=== PATIENT | female | born 1950 | race Caucasian/White ===

== ENCOUNTER 2017-06-09 11:45 | Outpatient (CLI) | payer BC, MEDICARE ==
[2017-06-09 12:33] LABS: Hematocrit 39.8 % (36.0-47.0); Mean Platelet Volume 7.4 fL (7.4-10.4); White Blood Cell (WBC) Count 7.5 thou/uL (4.8-10.8)
[2017-06-09 13:05] LABS: Anion Gap 11 mmol/L (10-20); BUN (Urea Nitrogen) 12 mg/dL (9.8-20.1); Calc. Creatinine Clearance 0 mL/min (70-130); Calcium 9.1 mg/dL (7.8-10.44); Carbon Dioxide 27 mmol/L (23-31); Chloride 106 mmol/L (98-107); Estimated GFR-MDRD 85
== END 2017-06-09 11:46 | disposition home or self-care (01) ==
LOC: LABBT 11:45
PROVIDERS: ATTEND Podiatrist Foot & Ankle Surgery
DX: Z01.818 Encounter for other preprocedural examination (principal); M21.612 Bunion of left foot; M20.42 Other hammer toe(s) (acquired), left foot
CPT/HCPCS: 80048; 85027

== ENCOUNTER 2017-06-13 08:45 | Day surgery (SDC) | payer BC, MEDICARE ==
[2017-06-09 12:19] VITALS: BMI 25.7
[2017-06-13] MEDS ORDERED: CEFAZOLIN/Water 2 GM/20 ML SYRINGE ONE (09:59)
[2017-06-13] MEDS ORDERED: Bupivacaine PF 0.5% 30 ML VIAL ONE (11:50)
[2017-06-13] MEDS ORDERED: Neomycin-Polymyxin 1 ML AMP ONE (11:51)
[2017-06-13] MEDS ORDERED: Fentanyl 100 MCG/2 ML VIAL ONE ×4 (12:23→16:04)
[2017-06-13] MEDS ORDERED: Ondansetron HCl/PF 4 MG/2 ML Vial ONE (12:33)
[2017-06-13] MEDS ORDERED: Lidocaine 1% PF 5 ML VIAL ONE (12:33)
[2017-06-13] MEDS ORDERED: Dexamethasone 20 MG/5 ML VIAL ONE (12:33)
[2017-06-13] MEDS ORDERED: Propofol 200 MG/20 ML VIAL ONE (12:33)
--- NOTE | 2017-06-13 16:51 | OP ---
DATE OF SURGERY: 06/13/2017 SURGEON: Abi Holt DPM. PREOPERATIVE DIAGNOSES: 1. Bunion, left foot. 2. Dislocated second metatarsophalangeal joint, left. 3. Plantar plate tear, left. 4. Hammertoes 2 through 4 left foot and pain, left foot. PROCEDURES: Artis bunionectomy, left foot, Yessica osteotomy second metatarsal left foot, plantar plat e repair, left foot arthrodesis, second and proximal metatarsophalangeal joint, left foot, flexor ten don release to digits 3 and 4, left foot. ANESTHESIA: General with local foot block. HEMOSTASIS: Pneumatic ankle tourniquet at 250 mmHg. ESTIMATED BLOOD LOSS: Less than 5 mL. MATERIALS: 2-0 Vicryl, 4-0 Monocryl, 4-0 Prolene #2 FiberWire and 2 Synthes headless compression scr ews and one Arthrex snap-off screw. INJECTABLES: 20 mL of 0.5% Marcaine plain. PROCEDURE IN DETAIL: The patient was brought into the operating room and placed on the operating tab le in supine position. Well-padded pneumatic ankle tourniquet was placed about the patient's left an kle following administration of IV anesthesia. Local foot block was given utilizing 20 mL of 0.5% Ma rcaine plain. The foot was then scrubbed, prepped and draped in usual aseptic manner. [place] ge was used to exsanguinate the patient's left foot and the pneumatic ankle tourniquet was then infla ruby to 250 mmHg, which provided adequate hemostasis throughout the entire procedure. Next, attention was then directed to the dorsal aspect of the patient's left foot where a 5 cm linear longitudinal i ncision was made over the dorsal aspect of the first metatarsophalangeal joint. Upon exposure of the capsule, a T-type capsulotomy was performed exposing the head of the first metatarsal as well as the base of the proximal phalanx. Utilizing a sagittal bone saw, the medial prominence was carefully re sected and passed from the operative field. Next, a Chevron-type osteotomy was performed shifting th e head into a more corrected lateral position, was held in place with temporary fixation of a guidewi re. Next, utilizing techniques and principles of Sovi 3.0 x 26 mm screw was placed across the osteotomy site from dorsal proximal to plantar distal. Through the first interspace, the adduct or tendon was then carefully released from its attachment at the base of the proximal phalanx. The w ound was irrigated with copious amounts of sterile normal saline and GI mixture and the skin was then closed utilizing 2-0 Vicryl for capsular structures, 4-0 Monocryl for subcuticular and 4-0 Prolene f or skin closure. Next, attention was then directed to the dorsal aspect of the patient's left second digit and metatarsophalangeal joint, a 5 cm linear longitudinal incision was made over the dorsal as pect of the patient's second metatarsophalangeal joint extending to the proximal interphalangeal join t. Upon adequate exposure of the capsule, a linear type capsulotomy was performed exposing the head of the second metatarsal. Next, an oblique cut was then made at the neck of the second metatarsal sh ifting into more corrected lateral position and at this point, it was noted that the plantar plate wa s then torn medially, the stretched and torn plantar plate was then carefully resected and passed fro m the operative field. Next, utilizing techniques and principles of Arthrex medical, a 2.0 FiberWir e was used to reattach the plantar plate to the base of the proximal phalanx of the second digit. A step off screw was placed across the second metatarsal osteotomy site holding it in place that correc t shortened position. Next, attention was then directed to the second digit where a transverse tenot isabel was then performed at the proximal interphalangeal joint. Upon adequate exposure of the head of the proximal phalanx, it was carefully resected and passed from the operative field as well as the ba se of the intermediate phalanx. Next, utilizing techniques and principles, the Sovi a 2.4 x 36 mm screw was placed across the osteotomy site from distal to proximal. Fluoroscopy was used th roughout the procedure and all fixation was noted to be correct at this time. The wound was irrigate d with copious amounts of sterile normal saline and mixture. The capsular structures were reappro ximated and coapted utilizing 2-0 Vicryl and the skin was closed utilizing 4-0 Monocryl and 4-0 Prole ne and a simple interrupted suture technique through a stab incision in the plantar aspect of the sec ond and third and fourth digits under the proximal interphalangeal joint, a stab incision was then pe rformed to and the tendon was released. The wounds were irrigated with copious amounts of sterile no rmal saline and mixture and the skin was closed utilizing 4-0 Prolene in a simple interrupted sutu re technique. Light compressive dressing was placed about the patient's left foot and the pneumatic ankle tourniquet was released with prompt hyperemic response noted to all digits, left foot. DISCHARGE SUMMARY: Following a period of postoperative monitoring, the patient is to be discharged h ome. She is advised to call, if she has any problems prior to the first postoperative appointment, er vascular status was intact to all digits at this time.
[2017-06-13] MEDS ORDERED: HYDROcodone/Acetaminophen 5/325 mg Tablet ONE (17:20)
--- NOTE | 2017-06-13 18:42 | RAD ---
LEFT FOOT THREE VIEWS: History: 66-year-old female with history of post op bunionectomy. FINDINGS: Post op bunionectomy changes are noted with internal fixation screws stabilizing the first and second distal metatarsals as well as the second toe phalanges. No pre-operative imaging available for malika alexandre. IMPRESSION: Post-operative bunionectomy changes involving the distal first and second metatarsals and the second toe phalanges. POS: [facility]
== END 2017-06-13 18:30 | disposition home or self-care (01) ==
LOC: SDC 08:45
PROVIDERS: ATTEND Podiatrist Foot & Ankle Surgery
PROC: 0QSP04Z Reposition Left Metatarsal with Internal Fixation Device, Open Approach (ICD-10-PCS; principal; 2017-06-13)
PROC: 0SGN04Z Fusion of Left Metatarsal-Phalangeal Joint with Internal Fixation Device, Open Approach (ICD-10-PCS; principal; 2017-06-13)
DX: M21.612 Bunion of left foot (principal); M20.42 Other hammer toe(s) (acquired), left foot; S93.125A Dislocation of metatarsophalangeal joint of left lesser toe(s), initial encounter; S93.525A Sprain of metatarsophalangeal joint of left lesser toe(s), initial encounter; I42.1 Obstructive hypertrophic cardiomyopathy; I34.0 Nonrheumatic mitral (valve) insufficiency; I25.10 Atherosclerotic heart disease of native coronary artery without angina pectoris; F41.9 Anxiety disorder, unspecified; I10 Essential (primary) hypertension; E11.9 Type 2 diabetes mellitus without complications; G47.33 Obstructive sleep apnea (adult) (pediatric); M51.36 Other intervertebral disc degeneration, lumbar region; M41.80 Other forms of scoliosis, site unspecified; Z99.89 Dependence on other enabling machines and devices; Z79.899 Other long term (current) drug therapy; Z98.84 Bariatric surgery status; Z95.818 Presence of other cardiac implants and grafts; Z98.890 Other specified postprocedural states
CPT/HCPCS: 76001; 96374; C1713; G8978-GP-CJ; G8979-GP-CJ; G8980-GP-CJ; J1100; J2001; J2405; J2704; J3010; S0020

== ENCOUNTER 2017-07-14 13:16 | Outpatient (CLI) | payer BC, MEDICARE ==
[2017-07-14 14:32] LABS: Hematocrit 37.3 % (36.0-47.0); Mean Platelet Volume 7.2 fL (7.4-10.4); Red Blood Cell (RBC) Count 3.92 mill/uL (4.20-5.40); White Blood Cell (WBC) Count 7.5 thou/uL (4.8-10.8)
[2017-07-14 14:51] LABS: Anion Gap 11 mmol/L (10-20); BUN (Urea Nitrogen) 13 mg/dL (9.8-20.1); Calc. Creatinine Clearance 0 mL/min (70-130); Calcium 8.8 mg/dL (7.8-10.44); Carbon Dioxide 28 mmol/L (23-31); Chloride 108 mmol/L (98-107); Estimated GFR-MDRD 83
== END 2017-07-14 13:17 | disposition home or self-care (01) ==
LOC: LABBT 13:16
PROVIDERS: ATTEND Podiatrist Foot & Ankle Surgery
DX: Z01.812 Encounter for preprocedural laboratory examination (principal); M21.611 Bunion of right foot; M20.41 Other hammer toe(s) (acquired), right foot
CPT/HCPCS: 80048; 85027

== ENCOUNTER 2017-07-20 09:40 | Day surgery (SDC) | payer BC, MEDICARE ==
[2017-07-14 13:34] VITALS: BMI 25.8
[2017-07-20] MEDS ORDERED: CEFAZOLIN/Water 2 GM/20 ML SYRINGE ONE (10:26)
[2017-07-20] MEDS ORDERED: Bupivacaine PF 0.5% 30 ML VIAL ONE (11:06)
[2017-07-20] MEDS ORDERED: Bupivacaine/Epinephrine 0.25% 30 ML VIAL ONE (11:06)
[2017-07-20] MEDS ORDERED: Neomycin-Polymyxin 1 ML AMP ONE (11:19)
[2017-07-20] MEDS ORDERED: Fentanyl 250 MCG/5 ML VIAL ONE (11:29)
[2017-07-20] MEDS ORDERED: Fentanyl 100 MCG/2 ML VIAL ONE ×2 (14:14→14:46)
--- NOTE | 2017-07-20 14:47 | OP ---
DATE OF SURGERY 07/20/2017 SURGEON: Abi Holt DPM. PREOPERATIVE DIAGNOSES: 1. Bunion, right foot, metatarsalgia with dislocated second metatarsophalangeal joint, second digit, right foot. 2. Hammertoe digits 2-4 right foot, displaced hardware, left second digit. POSTOPERATIVE DIAGNOSES: 1. Bunion, right foot, metatarsalgia with dislocated second metatarsophalangeal joint, second digit, right foot. 2. Hammertoe digits 2-4 right foot and displaced hardware, left second digit. PROCEDURE: Artis bunionectomy, right foot, Chevron type osteotomy second metatarsal right foot, fle xor tendon release to digits 3 and 4 right foot, arthrodesis PIPJ second digit right foot, replacemen t of displaced hardware, second toe left foot. INJECTABLES: 30 mL of 0.5% Marcaine plain. PROCEDURE: The patient was brought into the operating room, and placed on the operating table in sup ine position, well-padded pneumatic ankle tourniquet was placed about the patient's right ankle. Fol lowing administration of IV anesthesia, local foot block was given utilizing 20 mL of 0.5% Marcaine p ahsan. The foot was then scrubbed, prepped and draped in usual aseptic manner. Esmarch bandage was u sed to exsanguinate the patient's right foot and the pneumatic ankle tourniquet was then inflated to 250 mmHg, which provided adequate hemostasis throughout the entire procedure. Attention was then dir ected to the first metatarsophalangeal joint where a 5 cm linear longitudinal incision was made over the dorsal aspect of the joint. Upon adequate exposure of the capsule T-type capsulotomy was perform ed exposing the head of the first metatarsal as well as the base of the proximal phalanx. The medial prominence was then carefully resected and passed from the operative field. Next, a Chevron type os teotomy was performed shifting the head into a more corrected lateral position was held in place with temporary fixation with a K-wire. Next, utilizing techniques and principals a Synthes 3.0 compressi on screw was placed across the osteotomy site from dorsal proximal to plantar distal. The adductor t endon was then carefully resected from its attachment at the base of proximal phalanx. The wound was irrigated with copious amounts of sterile normal saline and mixture and the capsular structures w ere reapproximated and coapted utilizing 2-0 Vicryl, and skin was closed utilizing 4-0 Vicryl for sub cuticular and 4-0 Prolene for skin closure. Next, attention was then directed to the second metatars al where a 3 cm linear longitudinal incision was made over the dorsal aspect of the second metatarsop halangeal joint. Upon adequate exposure of the second metatarsal a linear capsulotomy was performed exposing the head of the second metatarsal, a sagittal bone saw was used to make an oblique cut shift ing it to a more corrected shortened position, it was held in place with temporary fixation of K-wire . Fluoroscopy was used to assure proper alignment and shortening were noted to be correct and a 14 m m headless compression screw was placed across the osteotomy site. The wound was irrigated with copi ous amounts of sterile normal saline and mixture and the skin and subcuticular structures were beni sed utilizing 4-0 Vicryl and 4-0 Prolene. Attention was then directed to the dorsal aspect of the pr oximal interphalangeal joint where a transverse incision was made exposing the tendon and the second digit. A transverse tenotomy was then performed and the joint of the proximal interphalangeal joint was resected utilizing a sagittal bone saw. Next, utilizing techniques and principals a Synthes 2.4 headless compression screw was placed across the osteotomy site from the distal aspect of the second digit. The tendon was then carefully reapproximated and coapted utilizing 4-0 Vicryl, and skin was c losed utilizing 4-0 Prolene in a simple interrupted suture technique. Next, a stab incision was made at the plantar aspect of the third and fourth digit releasing the plantar flexor tendons of each dig it. The wounds were irrigated with copious amounts of sterile normal saline and mixture and the s kin was closed utilizing 4-0 Prolene in a simple interrupted suture technique. Light compressive sharona ssing was placed about the patient's right foot and the pneumatic ankle tourniquet was released with prompt hyperemic response noted to all digits of the right foot. Next, attention was then directed t o the dorsal aspect of the patient's left foot where an Esmarch bandage was used to exsanguinate the patient's left foot and the pneumatic ankle tourniquet was then inflated to 200 mmHg, which provided adequate hemostasis throughout the entire procedure. Utilizing fluoroscopy, the screws of the second digit was then identified and resected from its displaced position. Due to the lack of fusion at th e proximal interphalangeal joint a new larger 3.0 headless screw was placed in a corrected position. The wound was irrigated with copious amounts of sterile normal saline and mixture and the skin wa s closed utilizing 4-0 Prolene in simple interrupted suture technique. Light compressive dressing wa s placed about the patient's left foot and the pneumatic ankle tourniquet was released with prompt hy peremic response noted to all digits of the left foot. DISCHARGE SUMMARY: The patient tolerated the procedure and anesthesia and was transferred to the rec overy room with vital signs stable and vascular status intact to all digits of both feet. Following a period of postoperative monitoring, the patient is to be discharged home. Should she have any prob lems prior to the first postoperative appointment, she is advised to call and will be seen within [address] [place] of the procedure.
[2017-07-20] MEDS ORDERED: traMADol HCl 50 MG TAB ONE (15:51)
--- NOTE | 2017-07-20 16:06 | RAD ---
THREE VIEWS RIGHT FOOT: 07/20/17 HISTORY: Status post surgery. COMPARISON: None. FINDINGS: There is evidence of postsurgical change with surgery at the distal aspect of the first metatarsal. T here appears to be an associated fracture with a solitary internal fixation screw. There is a screw f using the interphalangeal joint space of the entire second digit. There is a screw at the distal aspe ct of the second metatarsal. Lisfranc alignment is maintained. There is associated soft tissue swelling and banding material. Incompletely assessed internal fixation hardware at the distal fibula is noted. There does appear to be some perihardware lucency. IMPRESSION: 1. Postsurgical changes as above. 2. Perihardware lucency involving the internal fixation plate at the distal fibula. POS: [facility]
--- NOTE | 2017-07-20 16:07 | RAD ---
LEFT FOOT THREE VIEWS: HISTORY: Foot surgery. Followup. COMPARISON: 06/13/2017 FINDINGS: Periosteal reaction and callus formation are forming around the osteotomy surgeries at the first and second metatarsal necks. No perihardware lucency is apparent. Internal fixation of the second toe i s apparent. A small amount of soft tissue gas remains. Soft tissue swelling is evident about the fo refoot. Osteophytosis and other degenerative changes are present throughout the foot. A large plantar enthes ophyte arises from the posterior aspect of the calcaneus. IMPRESSION: 1. Healing changes around the postoperative sites of the left foot. 2. Osteoarthritis. 3. Plantar heel spur. POS: [facility]
[2017-07-20] MEDS ORDERED: Dexamethasone 20 MG/5 ML VIAL ONE (16:45)
[2017-07-20] MEDS ORDERED: Lidocaine 1% PF 5 ML VIAL ONE (16:45)
[2017-07-20] MEDS ORDERED: Propofol 200 MG/20 ML VIAL ONE (16:45)
[2017-07-20] MEDS ORDERED: Ondansetron HCl/PF 4 MG/2 ML Vial ONE (16:45)
[2017-07-20] MEDS ORDERED: Ketorolac Tromethamine 30 MG/ML VIAL ONE (16:45)
== END 2017-07-20 16:35 | disposition home or self-care (01) ==
LOC: SDC 09:40
PROVIDERS: ATTEND Podiatrist Foot & Ankle Surgery
PROC: 0QSN0ZZ Reposition Right Metatarsal, Open Approach (ICD-10-PCS; principal; 2017-07-20)
PROC: 0QBN0ZZ Excision of Right Metatarsal, Open Approach (ICD-10-PCS; principal; 2017-07-20)
DX: M21.611 Bunion of right foot (principal); M20.41 Other hammer toe(s) (acquired), right foot; T84.293A Other mechanical complication of internal fixation device of bones of foot and toes, initial encounter; S93.124A Dislocation of metatarsophalangeal joint of right lesser toe(s), initial encounter
CPT/HCPCS: 76001; C1713; J1100; J1885; J2001; J2405; J2704; J3010; S0020

== ENCOUNTER 2020-12-30 13:55 | Outpatient (CLI) | payer BC, OTHER | END 2020-12-30 13:56 | disposition home or self-care (01) | LOC: BICMAMMO 13:55 | PROVIDERS: ATTEND Internal Medicine Hospice and Palliative Medicine | DX: Z12.31 Encounter for screening mammogram for malignant neoplasm of breast (principal) | CPT/HCPCS: 77063; 77067 ==

== ENCOUNTER 2022-01-29 12:47 | Outpatient (CLI) | payer BC, MEDICARE | END 2022-01-29 12:48 | disposition home or self-care (01) | LOC: BICMAMMO 12:47 | PROVIDERS: ATTEND Internal Medicine Endocrinology, Diabetes & Metabolism | DX: Z13.820 Encounter for screening for osteoporosis (principal); M85.89 Other specified disorders of bone density and structure, multiple sites | CPT/HCPCS: 77080 ==

== ENCOUNTER 2023-03-02 10:07 | Outpatient (CLI) | payer BC, MEDICARE | END 2023-03-02 10:08 | disposition home or self-care (01) | LOC: BICMAMMO 10:07 | PROVIDERS: ATTEND Internal Medicine Hospice and Palliative Medicine | DX: Z12.31 Encounter for screening mammogram for malignant neoplasm of breast (principal); M81.0 Age-related osteoporosis without current pathological fracture; M85.851 Other specified disorders of bone density and structure, right thigh; M85.852 Other specified disorders of bone density and structure, left thigh; Z78.0 Asymptomatic menopausal state | CPT/HCPCS: 77063; 77067; 77080 ==

== ENCOUNTER 2023-04-11 11:02 | Outpatient (CLI) | payer BC, MEDICARE | END 2023-04-11 11:03 | disposition home or self-care (01) | LOC: RAD 11:02 | PROVIDERS: ATTEND Psychiatry & Neurology Neurology | DX: G25.0 Essential tremor (principal) | CPT/HCPCS: 71045 ==

== ENCOUNTER 2023-05-03 09:16 | Outpatient (CLI) | payer BC, MEDICARE ==
[2023-05-03] MEDS ORDERED: Magnevist 469MG/ML 20 ML VIAL ONE (12:33)
== END 2023-05-03 09:17 | disposition home or self-care (01) ==
LOC: MRI 09:16
PROVIDERS: ATTEND Psychiatry & Neurology Neurology
DX: R25.1 Tremor, unspecified (principal); G93.9 Disorder of brain, unspecified
CPT/HCPCS: 70553

== ENCOUNTER 2023-06-21 10:30 | Outpatient (CLI) | payer BC, MEDICARE | END 2023-06-21 10:31 | disposition home or self-care (01) | LOC: BICRAD 10:30 | PROVIDERS: ATTEND Internal Medicine Rheumatology | DX: M81.0 Age-related osteoporosis without current pathological fracture (principal); M41.9 Scoliosis, unspecified; M47.816 Spondylosis without myelopathy or radiculopathy, lumbar region | CPT/HCPCS: 72070; 72100 ==

== ENCOUNTER 2024-08-30 12:47 | Outpatient (CLI) | payer MEDICARE | END 2024-08-30 12:48 | disposition home or self-care (01) | LOC: BICMAMMO 12:47 | PROVIDERS: ATTEND Internal Medicine Endocrinology, Diabetes & Metabolism | DX: M81.8 Other osteoporosis without current pathological fracture (principal); M85.88 Other specified disorders of bone density and structure, other site | CPT/HCPCS: 77080 ==